=== PATIENT | male | born 1955 | race Caucasian/White ===

== ENCOUNTER 2021-05-03 11:24 | Day surgery (SDC) | payer OTHER ==
[~2021-05-03] VITALS: Ht 190.5 cm; Wt 104.3 kg
--- NOTE | ~2021-05-03 | O ---
[facility] [place] [address] OPERATIVE REPORT Name: MUNIR MALDONADO Room #: 150-3 [facility]#: [id number] Admission: 05/03/21 Attend Phys: Kishore Light MD Discharge: Date of : 51 Report #: [id number] THIS REPORT FOR: cc: Michael Mendez,Michael Will,Kishore Giron MD ~ cc: Michael Mendez DO DATE OF SERVICE: 05/03/[address] Kishore Light and Dr. Michael Mednez. PREOPERATIVE DIAGNOSIS: Right inguinal hernia. POSTOPERATIVE DIAGNOSES: Right inguinal hernia with a right cord lipoma. PROCEDURES: Right inguinal hernia repair with Prolene hernia system mesh and excision of a right cord lipoma. SURGEON: Kishore Light MD ANESTHESIA: Local IV sedation. DESCRIPTION OF PROCEDURE: The patient was brought to the operating room and placed on the operating table in the supine position. Sequential compression devices were in place for DVT prophylaxis. There is no indication for preoperative antibiotics. The patient underwent IV sedation. Right inguinal area was then prepped and draped in a sterile fashion. Skin and subcutaneous tissue were then infiltrated with 0.5% Marcaine and 1% Xylocaine with epinephrine. Right inguinal skin incision was then performed using a #10 scalpel blade. Hemostasis obtained using the electrocautery. Dissection was carried down through subcutaneous tissue to the external oblique fascia, which was then incised with a knife, opened with the Metzenbaum scissors. The ilioinguinal nerve was identified, dissected free, injected with a local mixture and preserved. The cord was then elevated and held in place with a Hammond drain. Cremasteric muscle fibers were then split in the direction of their fibers using clamp and electrocautery. Cord lipoma was identified, dissected free, clamped, excised and tied with a 2-0 chromic tie. The floor was inspected and there was a moderate to large direct inguinal hernia defect. This direct inguinal hernia sac was then dissected free, injected with a local mixture and then incised just above the level of the floor using the electrocautery. Hernia sac was then reduced back through the floor into the preperitoneal space. Using a 2-0 Prolene suture, the floor was closed using a running 2-0 Prolene Shouldice repair. The overlay patch was then deployed into the inguinal canal and secured [address] [address] OPERATIVE REPORT Name: MUNIR MALDONADO J [facility] #: 150-3 [id number] Admission: 05/03/21 Attend Phys: Kishore Light MD Discharge: Date of : 51 Report #: [id number] to the pubic tubercle with the same running 2-0 Prolene suture. The mesh was then secured superiorly and at the connector using simple interrupted 2-0 Vicryl sutures. The mesh was split and wrapped around the cord and secured to the inguinal ligament with simple interrupted 2-0 Vicryl suture. The cord and ilioinguinal nerve were then returned to the canal intact. The external oblique fascia was then closed using a running 2-0 Vicryl suture. Leidy's fascia was then reapproximated using 3 simple interrupted 2-0 chromic sutures and the skin then closed with a running 4-0 subcuticular Vicryl stitch. The wound was then dressed with Mastisol, 1/2-inch Steri-Strips cut in half, Telfa, 4 x 4 gauze, sponge, and tape. The patient was then awakened from the IV sedation and taken to the recovery room awake, alert and in good condition. Estimated blood loss was approximately 10 mL, and the patient tolerated the procedure well. All sponge, lap and instrument counts were correct x2. By: 1403 1424 Kishore Light MD /nt
[~2021-05-03 11:24] MED LIST: ASPIRIN EC81 M1 PO; CARVEDILOL25 MG PO; DAILY VITAMIN1 EAC6 PO; LEVOTHYROXINE100 MCG PO; LOSARTAN-HCTZ1 EAC2 PO; MELOXICAM15 MG PO; ZOCOR 20 MG TAB20 M1 PO
[2021-05-03 12:46] VITALS: BP 141/84
--- NOTE | 2021-05-03 14:21 | EKG ---
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
--- NOTE | 2021-05-07 11:07 | PATH ---
[facility] [address] [place] [address] PATHOLOGY RPT PROCEDURE Name: MUNIR MALDONADO Room #: DEP [facility] M.R.#: [id number] Admission: 05/03/21 Date of : 51 Discharge: 05/03/21 Report #: [id number] Path Case #: [id number] [facility] Accession Number: [id number] . 01 Material submitted: . inguinal area - CORD LIPOMA . 01 Clinical history: . HERNIA REPAIR, INGUINAL UNILATERAL RIGHT INGUINAL HERNIA . 01 Diagnosis: Fibroadipose tissue "cord lipoma": - Mature lobulated fibroadipose tissue consistent with a lipoma. (SHA:pit; 05/06/2021) QTP 05/06/2021 [facility] Local . 01 Electronically signed: . Fercho Mendoza MD, Pathologist NPI- [id number] . 01 Gross description: . Fixative: Formalin Labeled: CORD lipoma Specimen received: Intact Dimensions: 4.9 x 2.6 x 1.4 External surface: Smooth, omer-yellow and glistening with a thin translucent membrane Cut surface: Lobular, omer-yellow with out hemorrhage or necrosis grossly identified . Feather Mixer sections are submitted in A1-A2. ([facility]; 05/04/2021) . GZA/GZA 05/04/2021 1140 Local . 01 Pathologist provided ICD-10: K40.90 . 01 CPT . 910903 Specimen Comment: Report sent to / DR HUMMEL Specimen Comment: A duplicate report has been generated due to demographic updates. Performed at: [address], [place], [place] [id number] MD Fercho Mendoza MD Phone: [phone]
== END 2021-05-03 13:38 | disposition home or self-care (01) ==
LOC: OR 11:24 → TBA 11:26 → OR 12:16
PROVIDERS: ATTEND Surgery
DX: K40.90 Unilateral inguinal hernia, without obstruction or gangrene, not specified as recurrent (principal); D17.6 Benign lipomatous neoplasm of spermatic cord; I10 Essential (primary) hypertension; I25.2 Old myocardial infarction; J43.9 Emphysema, unspecified; E78.5 Hyperlipidemia, unspecified; G47.30 Sleep apnea, unspecified; Z98.890 Other specified postprocedural states; Z20.822 Contact with and (suspected) exposure to COVID-19; Z79.899 Other long term (current) drug therapy; Z87.891 Personal history of nicotine dependence
CPT/HCPCS: 50010; 50101; 50386; 50403; 56524; 56525; 56526; 56528; 58646; 62110; 62850; 70005